=== PATIENT | male | born 1980 ===

== ENCOUNTER 2017-08-22 03:08 | Emergency (ER) | payer OTHER ==
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
[2017-08-22 05:32] VITALS: BP 124/67; PULSE 85; RESP 18; TEMP 97.6; O2SAT 97
== END 2017-08-22 05:55 | disposition home or self-care (01) ==
LOC: H.ER 03:08
DX: S09.90XA Unspecified injury of head, initial encounter (principal); S00.83XA Contusion of other part of head, initial encounter